=== PATIENT | male | born 1940 | race Caucasian/White ===

== ENCOUNTER 2017-05-17 03:53 | Emergency (ER) | payer MEDICARE ==
[2017-05-17 05:28] LABS: Comments Flag Yes; Hematocrit 37 % (42-52); Hemoglobin 12.9 g/dl (14.0-18.0); Mean Corpuscular HGB Conc 35 g/dl (31-36); Mean Corpuscular Hemoglobin 31 pg (27-31); Mean Corpuscular Volume 88 fL (80-94); Mean Platelet Volume 8 um3 (7.4-10.4); Red Blood Count 4.17 10^6/ul (4.0-5.4); Red Cell Distribution Width 14 % (10.5-15); White Blood Count 10.6 10^3/ul (3.5-10.8)
[2017-05-17 05:29] LABS: Add Diff/Slide Review? Slide Review Added
[2017-05-17 05:43] LABS: Albumin 3.8 g/dL (3.2-5.2); BUN/Creatinine Ratio 22.8 (8-20); Calcium 9.8 mg/dL (8.6-10.3); EGFR African American 80.5 (>60); EGFR Non-African American 62.6 (>60); Potassium 3.2 mmol/L (3.5-5.0); Total Bilirubin 1.7 mg/dL (0.2-1.0); Total Protein 6.8 g/dL (6.4-8.9)
[2017-05-17] MEDS ORDERED: Iodixanol* (CONTRAST) 320 MG/ML 100 ML SDV IV ONE (06:09)
[2017-05-17 07:33] VITALS: BP 159/61
--- NOTE | 2017-05-17 09:50 | ED ---
I, Elias Haywood, scribed for Shade Mcnally MD on 05/17/17 at 0742 . Progress - Progress Note Progress Note: Pt signed out by Dr. Jeff at shift change. Mr. Navarro reported to me that he feels fine now. He was started on keflex on Fri. for a UTI and then started on a Z-pack on . for pneumonia. He had nothing to eat all day yesterday and then felt like his heart was racing. He went to [place] but felt better by the time he got there. They noted that his d-dimer was elevated at 1100 and felt that his GFR could not support a CTA. He was transferred here (he drove himself ) and his GFR was noted to be 60 so he had a CTA here which showed only the pneumonia. He was feeling much improved and was D/C'd in stable condition with a diagnosis of palpitations. - Results/Orders Results/Orders: CHEST/THORAX CTA - Right middle lobe filtrate, likely pneumonia Course/Dx - Diagnoses Provider Diagnoses: Palpitations The documentation as recorded by the scribeChastity Edward accurately reflects the service I personally performed and the decisions made by me, Shade Mcnally MD.
--- NOTE | 2017-05-17 10:43 | RAD ---
Indication: Positive d-dimer. Contrast: Administered 84.2 ml of VISAPAQUE 320 mg/ml CTA of the chest was performed after IV contrast administration. Coronal and sagittal reconstructed images were obtained. The pulmonary arterial tree is adequately opacified. No definite filling defects are noted to suggest pulmonary embolus. The aorta demonstrates atherosclerosis without evidence of aortic dissection or aneurysmal dilatation. There is scattered precarinal lymph nodes measuring up to 8 mm, AP window lymph nodes measuring up to 11 mm, right hilar lymph nodes measuring up to 8 mm. The heart demonstrates no pericardial effusion. The trachea and major bronchi appear patent. Airspace disease is noted in the right middle lobe suggestive of right middle lobe pneumonia. No focal nodules are identified. Evidence of prior rib fractures are noted bilaterally. Spinal canal appears to be intact. IMPRESSION: NO DEFINITE PULMONARY EMBOLUS IS NOTED. ATHEROSCLEROTIC THORACIC AORTA WITHOUT DISSECTION OR ANEURYSMAL DILATATION. EVIDENCE OF RIGHT MIDDLE LOBE INFILTRATE PNEUMONIA.
--- NOTE | 2017-05-18 04:30 | ED ---
[place] Rebecca, scribed for Nathan Jeff MD on 05/17/17 at 0547 . Palpitations / Dysrhythmia - HPI Summary HPI Summary: Pt is a 77 y/o M who presents to ED as a transfer from [place] for further workup due to an elevated D-Dimer. He initially presented to [facility] ED for palpitations characterized as fast that have been intermittent for the last 3 days. Additionally c/o chest tightness, lightheadedness and dizziness. Denies CP and SOB. Has not taken ASA today. PMHx HTN, DM. - History of Current Complaint Chief Complaint: EDGeneral Time Seen by Provider: 05/17/17 05:26 Hx Obtained From: Patient Onset/Duration: Lasting Days - 3 days Timing: Intermittent Episodes Lasting: Character: Fast Aggravating: Nothing Alleviating: Nothing Associated Signs & Symptoms: Lightheadedness, Dizzy - Allergy/Home Medications Allergies/Adverse Reactions: Allergies Allergy/AdvReac Type Severity Reaction Status Date / Time Penicillins [PCN] Allergy Unknown Verified 05/17/17 04:24 Reaction Details PMH/Surg Hx/FS Hx/Imm Hx Endocrine/Hematology History: Reports: Hx Diabetes Cardiovascular History: Reports: Hx Hypertension Infectious Disease History: No Infectious Disease History: Denies: Traveled Outside the [place] in Last 30 Days - Family History Known Family History: Positive: Hypertension - Social History Alcohol Use: None Substance Use Type: Reports: None Smoking Status (MU): Former Smoker Review of Systems Negative: Fever, Chills Negative: Erythema Negative: Sore Throat Positive: Palpitations, Other - Chest tightness. Negative: Chest Pain Negative: Shortness Of Breath, Cough Negative: Abdominal Pain, Vomiting, Nausea Negative: dysuria, hematuria Negative: Myalgia, Edema Negative: Rash Neurological: Other - Lightheadedness, dizziness All Other Systems Reviewed And Are Negative: Yes Physical Exam - Summary Physical Exam Summary: Constitutional: Well-developed, Well-nourished, Alert. (-) Distressed Skin: Warm, Dry HENT: Normocephalic; Atraumatic Eyes: Conjunctiva normal Neck: Musculoskeletal ROM normal neck. (-) JVD, (-) Stridor, (-) Tracheal deviation Cardio: Rhythm regular, rate normal, Heart sounds normal; Intact distal pulses; The pedal pulses are 2+ and symmetric. Radial pulses are 2+ and symmetric. (-) Murmur Pulmonary/Chest wall: Effort normal. (-) Respiratory distress, (-) Wheezes, (-) Rales Abd: Soft, (-) Tenderness, (-) Distension, (-) Guarding, (-) Rebound Musculoskeletal: (-) Edema Lymph: (-) Cervical adenopathy Neuro: Alert, Oriented x3 Psych: Mood and affect Normal Triage Information Reviewed: Yes Vital Signs On Initial Exam: Initial Vitals Temp Pulse Resp BP Pulse Ox 98.6 F 78 16 153/63 96 05/17/17 03:55 05/17/17 03:55 05/17/17 03:55 05/17/17 03:55 05/17/17 03:55 Vital Signs Reviewed: Yes - [place] Coma Scale Coma Scale Total: 15 Diagnostics - Vital Signs Vital Signs Temp Pulse Resp BP Pulse Ox 05/17/17 04:15 98.3 F 75 20 112/63 96 05/17/17 03:55 98.6 F 78 16 153/63 96 - Laboratory Lab Results: Lab Results 05/17/17 Range/Units 05:17 WBC 10.6 (3.5-10.8) 10^3/ul RBC 4.17 (4.0-5.4) 10^6/ul Hgb 12.9 L (14.0-18.0) g/dl Hct 37 L (42-52) % MCV 88 (80-94) fL MCH 31 (27-31) pg MCHC 35 (31-36) g/dl RDW 14 (10.5-15) % Plt Count 286 (150-450) 10^3/ul MPV 8 (7.4-10.4) um3 Neut % (Auto) 60.4 (38-83) % Lymph % (Auto) 19.0 L (25-47) % [place] % (Auto) 14.8 H (1-9) % Eos % (Auto) 4.3 (0-6) % Baso % (Auto) 1.5 (0-2) % Absolute Neuts (auto) 6.4 (1.5-7.7) 10^3/ul Absolute Lymphs (auto) 2.0 (1.0-4.8) 10^3/ul Absolute Monos (auto) 1.6 H (0-0.8) 10^3/ul Absolute Eos (auto) 0.5 (0-0.6) 10^3/ul Absolute Basos (auto) 0.2 (0-0.2) 10^3/ul Absolute Nucleated RBC 0 10^3/ul Nucleated RBC % 0 Result Diagrams: 05/17/17 05:17 05/17/17 05:17 Lab Statement: Any lab studies that have been ordered have been reviewed, and results considered in the medical decision making process. Re-Evaluation - Re-Evaluation First Eval Re-Evaluation Time: 06:38 Comment: Updated him on waiting for the CTA results. Course/Dx - Course Assessment/Plan: Pt is a 77 y/o M who presents to ED as a transfer from [place] for further workup due to an elevated D-Dimer. He initially presented to [facility] ED for palpitations characterized as fast that have been intermittent for the last 3 days. Additionally c/o chest tightness, lightheadedness and dizziness. Denies CP and SOB. Has not taken ASA today. PMHx HTN, DM. Pt will be signed out, pending disposition, awaiting CTA. Elevated BP noted and advised to f/u with PCP. - Diagnoses Provider Diagnoses: Palpitations Discharge - Discharge Plan Condition: Stable Disposition: OTHER Discharge Disposition Comment: Pt will be signed out to Dr. Mcnally, pending disposition, awaiting CTA Referrals: No Primary Care Phys,NOPCP [Primary Care Provider] - The documentation as recorded by the [place]ira k[place] Rebecca accurately reflects the service I personally performed and the decisions made by me, Nathan Jeff MD.
== END 2017-05-17 09:49 ==
LOC: ED 03:53
DX: R00.2 Palpitations (principal); Z87.891 Personal history of nicotine dependence; I10 Essential (primary) hypertension; E11.9 Type 2 diabetes mellitus without complications; Z88.0 Allergy status to penicillin; N39.0 Urinary tract infection, site not specified; J18.9 Pneumonia, unspecified organism
CPT/HCPCS: 36415; 71275; 80053; 83735; 85025; 85610; 85730; 96374; 99282; Q9967